=== PATIENT | male | born 1990 | race African-American/Black ===

== ENCOUNTER 2020-01-27 14:02 | Emergency (ER) | payer MEDICAID ==
[~2020-01-27] VITALS: Ht 167.6 cm; Wt 65.3 kg
--- NOTE | 2020-01-27 14:10 | NUR ---
PATIENT AMBULATED TO BED 5.
[2020-01-27 14:12] VITALS: BP 134/77
--- NOTE | 2020-01-27 14:14 | NUR ---
29 YEAR OLD MALE COMPLAINS OF ON/OFF BODYACHES X 1 MONTH. PT STATES THEY GET MUCH WORSE AT NIGHT, BUT IT COMES IN EPISODES. PT ALSO STATES HE HAS LEFT TESTICLE DISCOMFORT, DENIES ANY PAIN. PT DENIES ANY CHANGES IN URINATION. PT DENIES N/V/D. PT AOX4, BREATHING EVEN AND UNLABORED, SKIN WARM AND DRY. BED IN LOWEST POSITION, LOCKED, BED RAIL UPX1. PMH - DENIES ALLERGIES - NKA
[2020-01-27 15:19] VITALS: BP 116/63
--- NOTE | 2020-01-27 15:19 | NUR ---
Patient discharged with v/s stable. Written and verbal after care instructions about testicular masses given and explained. Patient verbalized understanding. Ambulatory with steady gait. All questions addressed prior to discharge. Advised to follow up with PMD.
== END 2020-01-27 15:19 | disposition home or self-care (01) ==
LOC: MED 14:02
DX: N50.812 Left testicular pain (principal)
CPT/HCPCS: 81002; 99282; 99283